=== PATIENT | male | born 1985 | race Caucasian/White ===

== ENCOUNTER 2017-08-08 22:53 | Emergency (ER) | payer OTHER ==
[~2017-08-08] VITALS: Ht 182.9 cm; Wt 120.2 kg
[2017-08-08 23:27] VITALS: BP 144/75
--- NOTE | 2017-08-08 23:43 | PHYS DOC ---
Past Medical History Past Medical History: Other Additional Past Medical Histor: gout Past Surgical History: No Surgical History Alcohol Use: None Drug Use: None Adult General Chief Complaint Chief Complaint: THUMB [facility] HPI Patient is a 32 year old male presents to the emergency department stating that he works at [employer] he was moving some plastic pellet type containers when it slipped out of his left hand. He states it came back up and hit his right thumb and wrist area. He has having pain along the metacarpal area lump on the first right, and the right wrist snuffbox area. He does have some swelling noted no redness no bruising or discoloration noted. He has decreased range of motion of the wrist he also has decreased range of motion of the first metacarpal. Patient denies taking anything for pain and discomfort. Review of Systems Review of Systems Constitutional: Denies fever or chills [] Eyes: Denies change in visual acuity, redness, or eye pain [] HENT: Denies nasal congestion or sore throat [] Respiratory: Denies cough or shortness of breath [] Cardiovascular: No additional information not addressed in HPI [] GI: Denies abdominal pain, nausea, vomiting, bloody stools or diarrhea [] : Denies dysuria or hematuria [] Musculoskeletal: Denies back pain. Complaint of right first metacarpal area pain and discomfort in right wrist pain Integument: Denies rash or skin lesions [] Neurologic: Denies headache, focal weakness or sensory changes [] Endocrine: Denies polyuria or polydipsia [] Allergies Allergies Allergies Coded Allergies Type Severity Reaction Last Updated Verified No Known Drug Allergies 08/08/17 No Physical Exam Physical Exam Constitutional: Well developed, well nourished, no acute distress, non-toxic appearance. [] HENT: Normocephalic, atraumatic, bilateral external ears normal, oropharynx moist, no oral exudates, nose normal. [] Eyes: PERRLA, EOMI, conjunctiva normal, no discharge. [] Neck: Normal range of motion, no tenderness, supple, no stridor. [] Cardiovascular:Heart rate regular rhythm, no murmur [] Lungs & Thorax: Bilateral breath sounds clear to auscultation [] Skin: Warm, dry, no erythema, no rash. [] Extremities: No tenderness, no cyanosis, no clubbing, ROM intact, no edema. Tenderness noted along the first metacarpal area on the right as well as the snuffbox area of the right wrist. Slight swelling noted no bruising or discoloration noted. Decreased range of motion noted. Right radial pulses 2+ cap refill brisk less than 2 seconds good sensation noted to all the fingers. Neurologic: Alert and oriented X 3, normal motor function, normal sensory function, no focal deficits noted. [] Psychologic: Affect normal, judgement normal, mood normal. [] EKG EKG [] Radiology/Procedures Radiology/Procedures [] Course & Med Decision Making Course & Med Decision Making Pertinent Labs and Imaging studies reviewed. (See chart for details) X-rays were negative for any bony abnormalities per Dr. Estrada. Patient will be placed in a thumb spica splint with recommendations to follow-up with orthopedic. Recommended ice packs on 20 minutes off 20 minutes several times a day. Ibuprofen 800 mg every 8 hours with food stop taking few develop an upset stomach. Patient provided with signs and symptoms to return back to the emergency department. Patient was provided a orthopedic name and number to follow up with however this is a work comp case he will need to contact his human resources department to see if they would prefer him to follow-up for work comp. All questions and concerns was answered at patient's bedside. [] Dragon Disclaimer Dragon Disclaimer This electronic medical record was generated, in whole or in part, using a voice recognition dictation system. Departure Departure Impression: Primary Impression: Right wrist pain Additional Impression: Hand pain, right Disposition: 01 HOME, SELF-CARE Condition: STABLE Referrals: JONNY BENÍTEZ PA-C (PCP) GALDINO GUIDO MD [facility] Patient Instructions: Arm Sling Use-Brief, Hand Contusion, [id number], Splint Care, [id number], Wrist Pain, [id number] Additional Instructions: Your x-rays were negative for any bony abnormalities. Tylenol or ibuprofen for pain and discomfort. He may take ibuprofen 800 mg every 8 hours with food stop taking few develop an upset stomach. Ice packs on 20 minutes off 20 minutes several times a day. Elevation as much as possible. Keep the splint in place until you follow-up with orthopedic. You will need to contact your human resources department to see her they would prefer you to follow up with. However we have provided she will with orthopedic name and number. Return back to emergency prior signs symptoms of become worse. Splinting Splinting : Location: right hand/wrist Hand-Made Type: orthoglass Splint: thumb spica Pre-Proc Neuro Vasc Exam: normal Post-Proc Neuro Vasc Exam: normal Problem Qualifiers JASSON TINSLEY APRN Aug 08, 2017 23:43
--- NOTE | 2017-08-09 07:46 | RAD ---
Examination: 3 views of the right wrist History: History of injury, pain Comparison: None available Findings: The alignment of the carpal bones grossly appears unremarkable. There is no obvious acute fracture or dislocation identified. Impression: No acute osseous findings .
--- NOTE | 2017-08-09 07:49 | RAD ---
Examination: 3 views of the right hand History: History of thumb pain after being hit by an object at work Comparison: None available Findings: The alignment of the carpometacarpal joints, metacarpophalangeal joints, interphalangeal joints grossly appears unremarkable. There is no obvious fracture identified. Impression: No acute osseous findings
== END 2017-08-09 00:46 | disposition home or self-care (01) ==
LOC: ER 22:53
DX: M25.531 Pain in right wrist (principal); M79.644 Pain in right finger(s); M10.9 Gout, unspecified; W22.8XXA Striking against or struck by other objects, initial encounter; Y93.89 Activity, other specified; Y99.8 Other external cause status; Y92.89 Other specified places as the place of occurrence of the external cause
CPT/HCPCS: 29125; 73110; 73130; 99284-25

== ENCOUNTER 2019-12-11 00:15 | Emergency (ER) | payer OTHER ==
[~2019-12-11] VITALS: Ht 182.9 cm; Wt 122.0 kg
[2019-12-11 03:18] VITALS: BP 125/71
[2019-12-11] MEDS ORDERED: DIPHTH,PERTUSS(ACELL),TET TOX 0.5 ML DISP.SYRIN. VAX IM ONE ×2 (03:28→03:45)
--- NOTE | 2019-12-11 03:49 | PHYS DOC ---
Past Medical History Past Medical History: Hypertension, Other Additional Past Medical Histor: gout, PSYCH ISSUES UN DX Past Surgical History: Other Additional Past Surgical Histo: R WRIST Alcohol Use: None Drug Use: None Adult General Chief Complaint Chief Complaint: HEAD INJURY/TRAUMA HPI HPI Patient is a 34 year old male who presents in place custody for evaluation of multiple scalp wounds after striking his head on a glass plate window 6 hours prior to ED arrival. Patient denies headache, loss. Tetanus is out of date.. [] Review of Systems Review of Systems ROS as per HPI All other systems were reviewed and found to be within normal limits, except as documented in this note. Current Medications Current Medications Current Medications Medications (Trade) Dose Ordered Sig/Alessia Start Time Stop Time Status Last Admin Dose Admin Diphtheria/ Tetanus/Acell Pertussis (Boostrix) 0.5 ml ONCE ONCE 12/11/19 03:45 12/11/19 03:46 12/11/19 03:32 0.5 ML Allergies Allergies Allergies Coded Allergies Type Severity Reaction Last Updated Verified No Known Drug Allergies 08/08/17 No Physical Exam Physical Exam Constitutional: Well developed, well nourished, no acute distress, non-toxic appearance. [] HENT: Normocephalic, multiple punctate lacerations to anterior and posterior scalp, 2.5 cm superficial laceration with good approximation, no foreign body, bilateral external ears normal, nose normal. [] Eyes: PERRLA, EOMI, conjunctiva normal. [] Neck: Normal range of motion, no midline tenderness. [] Cardiovascular:Heart rate regular rhythm, no murmur [] Lungs & Thorax: Bilateral breath sounds clear to auscultation [] Abdomen: Bowel sounds normal, soft, no tenderness. [] Skin: Warm, dry. [] Back: No tenderness. [] Extremities: No tenderness. [] Neurologic: Alert and oriented X 3, normal motor function, normal sensory function, no focal deficits noted. [] Psychologic: Affect normal, judgement normal, mood normal. [] Current Patient Data Vital Signs Vital Signs Date Time Temp Pulse Resp B/P (MAP) Pulse Ox O2 Delivery O2 Flow Rate FiO2 12/11/19 03:18 98.1 65 20 125/71 (89) 100 Room Air 98.1 EKG EKG [] Radiology/Procedures Radiology/Procedures [] Course & Med Decision Making Course & Med Decision Making Pertinent Labs and Imaging studies reviewed. (See chart for details) [wounds cleansed and 2.5 cm scalp wound closed with adhesive. Tetanus updated. ] Carlos Disclaimer Carlos Disclaimer This electronic medical record was generated, in whole or in part, using a voice recognition dictation system. Departure Departure Impression: Primary Impression: Scalp laceration Disposition: HOME, SELF-CARE Condition: STABLE Patient Instructions: Laceration Care, Adult, [id number] Additional Instructions: Scalp laceration. Please keep wounds clean and dry and follow up with infirmary as needed. MOE MEDINA DO Dec 11, 2019 03:49
== END 2019-12-11 03:39 | disposition home or self-care (01) ==
LOC: ER 00:15 → EEVIPCON 00:15 → ER 03:39
DX: S01.01XA Laceration without foreign body of scalp, initial encounter (principal); I10 Essential (primary) hypertension; Z98.890 Other specified postprocedural states; W22.8XXA Striking against or struck by other objects, initial encounter; Y93.89 Activity, other specified; Y92.89 Other specified places as the place of occurrence of the external cause; Y99.8 Other external cause status
CPT/HCPCS: 12001; 90471; 90715; 99283